=== PATIENT | female | born 1995 | race Caucasian/White ===

== ENCOUNTER 2016-10-30 00:13 | Emergency (ER) | payer OTHER ==
[~2016-10-30] VITALS: Ht 160 cm; Wt 57.0 kg
[2016-10-30 00:15] VITALS: BP 153/89; PULSE 74; RESP 16; TEMP 99.2; O2SAT 100
[2016-10-30] MEDS ORDERED: ROBA750T PO (01:03)
[2016-10-30] MEDS ORDERED: DICL75TA PO (01:03)
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
[2016-10-30] MEDS ORDERED: CYCLOBENZAPRINE HCL 10 MG TAB PO ONE (01:15)
[2016-10-30] MEDS ORDERED: ACETAMINOPHEN/HYDROcodone 325 MG/5 MG TAB PO ONE (01:15)
== END 2016-10-30 02:15 | disposition home or self-care (01) ==
LOC: NEPD 00:13
DX: M54.2 Cervicalgia (principal)
CPT/HCPCS: 99284